=== PATIENT | female | born 1965 | race Caucasian/White ===

== ENCOUNTER 2023-09-13 11:33 | Emergency (ER) | payer OTHER, SELFPAY ==
[2023-09-13 11:34] VITALS: BP 120/76; PULSE 71; RESP 14; TEMP 36.8; O2SAT 95; BMI 35.5
--- NOTE | 2023-09-13 11:53 | RAD_ITS ---
EXAM: XR CHEST, 2 VIEWS CLINICAL INDICATION: chest pain TECHNIQUE: Frontal and lateral views of the chest. COMPARISON: No relevant prior studies available. FINDINGS: LUNGS AND PLEURAL SPACES: Normal. No consolidation or edema. No pneumothorax. No effusion. HEART: Normal heart size. MEDIASTINUM: No mediastinal or hilar mass. BONES/JOINTS: No acute abnormality. RAD/Chest PA and Lateral IMPRESSION: No acute cardiopulmonary disease. Electronically Signed: Arnulfo Allison MD at 13:24 EDT ,
--- NOTE | 2023-09-13 11:53 | EKG12_ITS ---
Test Reason : POST CP Blood Pressure : / mmHG Vent. Rate : 062 BPM Atrial Rate : 062 BPM P-R Int : 122 ms QRS Dur : 084 ms QT Int : 392 ms P-R-T Axes : 060 017 005 degrees QTc Int : 397 ms Normal sinus rhythm Normal ECG Confirmed by JEWELS RIVERA, ARSENIO ([id number]), digital editor MAREK SANDERS ([id number]) on 09/15/2023 10:48:21 AM Referred By: VILMA/JUNG Confirmed By:ARSENIO DONIS MD
--- NOTE | 2023-09-13 11:57 | EDS_ITS ---
HPI <CHARITY Purcell - Last Filed: 09/13/23 14:03> History of Present Illness Chief Complaint: Chest Pain Narrative Narrative: 58-year-old female presents with chest pain. Around 7:30 AM she was sitting in her car and developed chest tightness that is over the sternal area and under both breasts. It lasted 30 minutes and resolved on its own. She had no associated shortness of breath, nausea or vomiting, or diaphoresis. She has been getting similar episodes of chest pain since October 2022 but they have been increasing in frequency and intensity. They now occur 2-3 times a day. She states when it first started she was seen in another hospital and was diagnosed with COVID. Since then she has gone to urgent care multiple times for it. She does not have a primary care doctor. She does not take any medications. She smokes 2 packs/day x 30 years. She denies history of DVT/PE, leg pain or swelling, recent surgery or travel, cough or hemoptysis, or hormone use. PFSH <CHARITY Purcell - Last Filed: 09/13/23 14:03> PFSH Medical History Chest pain Chronic pain Kidney stones Migraines Smoker Allergy/AdvReac Type Severity Reaction Status Date / Time No Known Allergies Allergy Verified 09/13/23 11:34 Surgical History (Updated 09/13/23 @ 12:18 by Bessy Dominguez) History of laminectomy Social History Smoking Status: Current every day smoker tobacco type: cigarettes ROS <CHARITY Purcell - Last Filed: 09/13/23 14:03> ROS ED ROS Narrative Constitutional: Negative for fever, chills, malaise. CVS: Positive for chest pain. Negative for palpitations, syncope. Respiratory: Negative for shortness of breath, cough, orthopnea. GI: Negative for abdominal pain, nausea, vomiting. EXAM <CHARITY Purcell Last Filed: 09/13/23 14:03> Physical Exam Narrative Exam Narrative: CONST: Patient sitting in no acute distress. EYES: Normal inspection. NECK: Normal inspection. RESP: No respiratory distress, CTAB. CVS: Regular rate and rhythm, no murmur, no gallop. ABD: Soft and nontender, no guarding or rebound, nondistended, no hepatosplenomegaly. SKIN: Color normal, no rash, warm, dry, intact. EXTREMITIES: Normal appearance, no pedal edema. NEURO: Oriented x4. PSYCH: Normal affect. Const Vital Signs: 09/13/23 11:34 09/13/23 11:53 09/13/23 12:13 Temperature 98.3 F Temperature Source Temporal Pulse Rate 71 Respiratory Rate 14 Respiratory Effort Normal Non-Labored Blood Pressure 120/76 Blood Pressure Mean 90 Pulse Ox 95 Oxygen Delivery Method Room Air Room Air 09/13/23 13:33 09/13/23 14:13 Temperature 98 F Temperature Source Pulse Rate 55 L 59 L Respiratory Rate 18 16 Respiratory Effort Blood Pressure 105/65 116/74 Blood Pressure Mean 78 88 Pulse Ox 96 98 Oxygen Delivery Method Room Air <Dr. Pankaj Rahman DO - Last Filed: 09/13/23 15:10> Physical Exam Const Vital Signs: 09/13/23 11:34 09/13/23 11:53 09/13/23 12:13 Temperature 98.3 F Temperature Source Temporal Pulse Rate 71 Respiratory Rate 14 Respiratory Effort Normal Non-Labored Blood Pressure 120/76 Blood Pressure Mean 90 Pulse Ox 95 Oxygen Delivery Method Room Air Room Air 09/13/23 13:33 09/13/23 14:13 Temperature 98 F Temperature Source Pulse Rate 55 L 59 L Respiratory Rate 18 16 Respiratory Effort Blood Pressure 105/65 116/74 Blood Pressure Mean 78 88 Pulse Ox 96 98 Oxygen Delivery Method Room Air MDM <CHARITY Purcell - Last Filed: 09/13/23 14:03> [facility] Narrative Medical decision making narrative: History gathered from: Patient, daughter Differential: ACS, PE, GERD Patient has had episodes of chest pain going on for 6+ months. Had an episode this morning at rest. Symptoms have now resolved. She appears well and nontoxic and is afebrile with normal vital signs. Exam is unremarkable. EKG is sinus rhythm with no ischemic changes and troponin x 2 negative. D-dimer negative. CXR shows no acute process. I provided a primary care referral she needs to follow-up for these chronic ongoing symptoms. She was discharged in stable condition. I have personally performed a face to face assessment of the patient and have reviewed the SAVITA Note. I performed a substantive portion of the visit including all aspects of the following. My rodriguez findings include: History is [patient presents with complaint of chest pain that started this morning around 8 or 8:30 AM. Patient had been up already when she walked to her car and noticed it after being at the laundromat. Describes somewhat of a sharp pain at times at times to pressure in the center of her chest. This morning she noticed some discomfort into the right side of her neck and right shoulder but she just thought she slept wrong. She has had similar pain for quite a long time and it can happen at rest or with activity. She tells me she has no medical history. She smokes 2 packs of cigarettes per day. She thinks her dad had heart trouble but he was not in her life so she is not sure what kind of heart trouble. She denies recent illness. Not having much chest discomfort at this time.] Exam is [HEENT-PERRLA, EOMI. Cranial nerves II through XII grossly intact. TMs clear. Mucous membranes moist. No adenopathy. Cardiovascular-regular rate and rhythm without murmur or ectopy Lungs-clear to auscultation, chest wall stable without crepitus or subcu emphysema Abdomen-normoactive bowel sounds, soft, nontender, no rebound or rigidity, no peritoneal signs. Extremities-intact ?4, normal range of motion, normal pulses, atraumatic] Medical Decison Making [patient presents with intermittent chest pain that she has had for months not necessarily exertional but can happen at rest 2. Had an episode this morning lasting less than a half an hour. EKG obtained on arrival showed a sinus rhythm with rate of 62 bpm with no acute ST segment changes. Patient placed on a clinical research monitor. CBC with differential obtained was unremarkable. Chemistries unremarkable. Initial troponin was normal at 5. D- dimer was normal at 0.37. Delta troponin also normal. This time she is pain- free. Etiology of her chest pain unclear. Will refer to primary care physician for follow-up. Patient advised return if worsening pain, increasing shortness of breath, exertional dyspnea or symptoms or if condition should worsen anyway.] Other additions or changes: [None] Lab Data Attestation: I reviewed the patient's lab results. Labs: Laboratory Results - last 24 hr 09/13/23 09/13/23 12:06 13:25 WBC 8.2 RBC 4.86 Hgb 14.0 Hct 44.7 MCV 92.0 MCH 28.8 MCHC 31.3 L RDW Std Deviation 49.3 H RDW Coeff of Airam 14.7 H Plt Count 322 MPV 9.8 Immature Gran % (Auto) 0.200 Neut % (Auto) 57.9 Lymph % (Auto) 28.7 Saline % (Auto) 9.0 Eos % (Auto) 3.5 Baso % (Auto) 0.7 Absolute Neuts (auto) 4.7 Absolute Lymphs (auto) 2.35 Nucleated RBC % 0 D-Dimer Quant (PE/DVT) 0.37 Sodium 143 Potassium 4.1 Chloride 111 H Carbon Dioxide 27.0 Anion Gap 5 BUN 19 H Creatinine 0.90 Estim Creat Clear Calc 66.45 Est GFR (MDRD) Af Amer 83 Est GFR (MDRD) Non-Af 69 BUN/Creatinine Ratio 21.1 H Glucose 93 Calcium 9.2 Troponin I High Sens 5 5 Radiography Diagnostic Testing: Clinical Impression(s) from Imaging Studies Chest X-Ray 09/13/23 11:53 IMPRESSION: No acute cardiopulmonary disease. Electronically Signed: Arnulfo Allison MD at 13:24 EDT , ED attending interpretation of 2-view chest x-ray shows normal heart size, no acute infiltrate, edema, or effusion. EKG Initial EKG: Attestation: I personally reviewed and interpreted this EKG as follows: Interpretation: Sinus Rhythm and No Acute Injury Pattern Comments: Normal sinus rhythm at 62 bpm Normal intervals, no acute ischemic changes <Dr. Pankaj Rahman, DO - Last Filed: 09/13/23 15:10> [facility] Narrative Medical decision making narrative: I have personally performed a face to face assessment of the patient and have reviewed the SAVITA Note. I performed a substantive portion of the visit including all aspects of the following. My rodriguez findings include: History is [patient presents with complaint of chest pain that started this morning around 8 or 8:30 AM. Patient had been up already when she walked to her car and noticed it after being at the laundromat. Describes somewhat of a sharp pain at times at times to pressure in the center of her chest. This morning she noticed some discomfort into the right side of her neck and right shoulder but she just thought she slept wrong. She has had similar pain for quite a long time and it can happen at rest or with activity. She tells me she has no medical history. She smokes 2 packs of cigarettes per day. She thinks her dad had heart trouble but he was not in her life so she is not sure what kind of heart trouble. She denies recent illness. Not having much chest discomfort at this time.] Exam is [HEENT-PERRLA, EOMI. Cranial nerves II through XII grossly intact. TMs clear. Mucous membranes moist. No adenopathy. Cardiovascular-regular rate and rhythm without murmur or ectopy Lungs-clear to auscultation, chest wall stable without crepitus or subcu emphysema Abdomen-normoactive bowel sounds, soft, nontender, no rebound or rigidity, no peritoneal signs. Extremities-intact ?4, normal range of motion, normal pulses, atraumatic] Medical Decison Making [patient presents with intermittent chest pain that she has had for months not necessarily exertional but can happen at rest 2. Had an episode this morning lasting less than a half an hour. EKG obtained on arrival showed a sinus rhythm with rate of 62 bpm with no acute ST segment changes. Patient placed on a clinical research monitor. CBC with differential obtained was unremarkable. Chemistries unremarkable. Initial troponin was normal at 5. D- dimer was normal at 0.37. Delta troponin also normal. This time she is pain- free. Etiology of her chest pain unclear. Will refer to primary care physician for follow-up. Patient advised return if worsening pain, increasing shortness of breath, exertional dyspnea or symptoms or if condition should worsen anyway.] Other additions or changes: [None] Lab Data Labs: Laboratory Results - last 24 hr 09/13/23 09/13/23 12:06 13:25 WBC 8.2 RBC 4.86 Hgb 14.0 Hct 44.7 MCV 92.0 MCH 28.8 MCHC 31.3 L RDW Std Deviation 49.3 H RDW Coeff of Airam 14.7 H Plt Count 322 MPV 9.8 Immature Gran % (Auto) 0.200 Neut % (Auto) 57.9 Lymph % (Auto) 28.7 Saline % (Auto) 9.0 Eos % (Auto) 3.5 Baso % (Auto) 0.7 Absolute Neuts (auto) 4.7 Absolute Lymphs (auto) 2.35 Nucleated RBC % 0 D-Dimer Quant (PE/DVT) 0.37 Sodium 143 Potassium 4.1 Chloride 111 H Carbon Dioxide 27.0 Anion Gap 5 BUN 19 H Creatinine 0.90 Estim Creat Clear Calc 66.45 Est GFR (MDRD) Af Amer 83 Est GFR (MDRD) Non-Af 69 BUN/Creatinine Ratio 21.1 H Glucose 93 Calcium 9.2 Troponin I High Sens 5 5 Radiography Diagnostic Testing: Clinical Impression(s) from Imaging Studies Chest X-Ray 09/13/23 11:53 IMPRESSION: No acute cardiopulmonary disease. Electronically Signed: Arnulfo Allison MD at 13:24 EDT , Discharge Plan Triage Chief Complaint: Chest Pain ED Midlevel Provider: Zahra Rodriges ED Provider: Pankaj Rahman Dx/Rx/DC Orders Clinical Impression: Chest pain of unknown etiology Instructions: ED Chest Pain, Uncertain Cause Primary Care Provider: Care Physician,No Primary Referrals: Susana Henning MD [Med Staff - Senior [employer] Gifts Officer] - Care Physician,No Primary [Primary Care Provider] - Activity Restrictions/Additional Instructions: Your screening test today look normal. It is important you follow-up with a primary care doctor. Disposition Disposition: Home, Self Care Discharge Date/Time: 09/13/23 14:14
[2023-09-13 12:26] LABS: Absolute Lymphocyte Count 2.35 X10^3/uL (0.83-4.51); Absolute Neutrophil Count 4.7 X10^3/uL (2.0-7.7); Basophil# 0.06 X10^3/uL; Basophil% 0.7 % (0-1); Eosinophil# 0.29 X10^3/uL; Eosinophils% 3.5 % (0-5); Hematocrit 44.7 % (37-47); Lymphocyte # 2.35 X10^3/ul (0.83-4.51); Lymphocyte % 28.7 % (19-41); Mean Corp Hgb Conc 31.3 g/dL (32-36); Mean Corpuscular Hgb 28.8 pg (27.0-32.0); Mean Platelet Vol. 9.8 fl (6.2-12.0); Monocyte# 0.74 X10^3/uL; NRBC Flagged by Analyzer 0 % (0-5); Neutrophil # 4.74 X10^3/uL (2.7-7.7); Neutrophil % 57.9 % (47-70); Platelet Count 322 K/mm3 (150-450); RBC Distribution Width CV 14.7 % (11.6-14.6); RBC Distribution Width SD 49.3 fl (35.1-43.9); Red Blood Count 4.86 M/mm3 (4.2-5.4); White Blood Count 8.2 K/mm3 (4.4-11.0)
[2023-09-13 12:43] LABS: Anion Gap 5 (5-15); BUN 19 mg/dL (7-18); BUN/Creat Ratio 21.1 RATIO (10-20); Calcium,Total 9.2 mg/dL (8.5-10.1); Chloride 111 mmol/L (98-107); EST Glomerular Filtration Rate 69 mL/min (>60); Est Glom Filt Rate - Afr Amer 83 mL/min (>60); Estimated Creatinine Clearance 66.45 ml/min; Glucose 93 mg/dL (74-106); Potassium 4.1 mmol/L (3.5-5.1); Sodium Level 143 mmol/L (136-145); Troponin-I HS (w/2H Reflex) 5 pg/mL (3.0-54.0)
--- OUTSIDE RECORDS SUMMARY | 2023-09-13 13:13 | XMS RPT_ITS | CCD ---
Author Name Unknown Address [address] [place] [address] Organization [facility] Care Team Providers Care Fiber Worker Name Role Phone Unavailable Primary Care Provider REJI [employer] Unavailable Allergies Allergy Classification Reported Allergen(s) Allergy Type Date of Onset Reaction(s) Facility (1 source) Codeine Drug Allergy 10-04-2022 Intolerance [facility] Medications Current Medications Medication Drug Class(es) Dates Sig (Normalized) Sig (Original) predniSONE 20 mg oral tablet (1 source) Start: 10-04-2022 End: 10-09-2022 take 1 tablet by mouth twice daily predniSONE (DELTASONE) 20 mg tablet Indications: URI, acute Take 1 tablet by mouth twice daily for 5 days. 10 tablet 0 10/04/2022 10/09/2022 Active Completed/Discontinued Medications Medication Drug Class(es) Dates Sig (Normalized) Sig (Original) azithromycin 250 mg oral tablet (1 source) Macrolide Antimicrobial Start: 10-04-2022 azithromycin (ZITHROMAX Z-MILAGROS) 250 mg tablet Indications: URI, acute , Acute pharyngitis, unspecified etiology 2 tablets by mouth first day then 1 tablet the next 4 days 6 tablet 0 10/04/2022 Active Problems Active Problems Problem Classification Problem Date Documented Da te Episodic/Chronic Other upper respiratory infections (3 sources) Sore throat symptom; Translations: [Acute pharyngitis, unspecified] Episodic Past or Other Problems Problem Classification Problem Date Documented Da te Episodic/Chronic Unclassified (1 source) COUGH CHEST AND BACK PAIN Onset: 10-02-2022 Results Test Name Value Interpretation Reference Range Facil ity Vital Signs Date Time Vital Sign Value Performing Clinician Faci lity 10-04-2022 10:50-0400 Body temperature 98.01 [degF] Vanesa Morris Oles RECREATION CLERK.ROLLING CHAIR PUSHER Work Phone: [facility] 10-04-2022 10:50-0400 Body weight 92.08 kg Vanesa Fournier RECREATION CLERK.ROLLING CHAIR PUSHER Work Phone: [facility] 10-04-2022 10:50-0400 Diastolic blood pressure 74 mm[Hg] Vanesa Fournier RECREATION CLERK.ROLLING CHAIR PUSHER Work Phone: [facility] 10-04-2022 10:50-0400 Heart rate 68 /min Vanesa Fournier RECREATION CLERK.ROLLING CHAIR PUSHER Work Phone: [facility] 10-04-2022 10:50-0400 Respiratory rate 16 /min Vanesa Fournier RECREATION CLERK.ROLLING CHAIR PUSHER Work Phone: [facility] 10-04-2022 10:50-0400 SaO2% (BldA) [Mass fraction] 98 % Vanesa Fournier RECREATION CLERK.ROLLING CHAIR PUSHER Work Phone: [facility] 10-04-2022 10:50-0400 Systolic blood pressure 114 mm[Hg] Vanesa Fournier RECREATION CLERK.ROLLING CHAIR PUSHER Work Phone: [facility] Encounters Encounter Date Encounter Type Care Provider Facility Start: 10-04-2022 End: 10-04-2022 ambulatory Facility:[facility] Start: 10-04-2022 End: 10-04-2022 Patient encounter procedure Vanesa Fournier RECREATION CLERK.ROLLING CHAIR PUSHER Work Phone: [facility] Procedures Date Procedure Procedure Detail Performing Clinician Start: 10-04-2022 RAPID STREP TEST B/O Bhumi Fournier RECREATION CLERK.ROLLING CHAIR PUSHER Work Phone: Start: 10-02-2022 HIGH SENSITIVITY TRO PONIN T Kavin Bradford Current Work Phone: Start: 10-02-2022 BASIC METABOLIC PNL Sherman Bradford Current Work Phone: Start: 10-02-2022 CBC + DIFF Kavin juares Current Work Phone: Start: 10-02-2022 HEPATIC FUNCTION PNL Imelda naz Bradford Current Work Phone: Start: 10-02-2022 HIGH SENSITIVITY TRO PONIN T Kavin Hearthen Current Work Phone: Start: 10-02-2022 NT PRO BNP Kavin juares Current Work Phone: Start: 10-02-2022 Radiologic exam ches t single view Kavin Hearthen Current Work Phone: Plan of Treatment Date Care Activity Detail Author Start: 10-02-2025 DIABETES SCREEN DIABETES SCREEN [facility] Start: 02-27-2023 Influenza vaccination INFLUENZA (Sea son Ended) [facility] Start: 06-29-2022 DEPRESSION ASSESSMENT DEPRESSION ASS ESSMENT [facility] Start: 2017 SHINGRIX VACCINE (1 of 2) SHINGRIX V ACCINE (1 of 2) [facility] Start: 2012 COLOGUARD (FIT-DNA) COLOGUARD (FIT-D NA) [facility] Start: 2012 Colonoscopy COLONOSCOPY [facility] Start: 2012 COLORECTAL CANCER SCREENING COLORECTAL CANCER SCREENING [facility] Start: [address] COLONOGRAPHY [facility] Start: 2012 FECAL OCCULT BLOOD FECAL OCCULT BLOO D [facility] Start: 2012 LIPID SCREEN LIPID SCREEN [facility] Start: 2012 SIGMOIDOSCOPY SIGMOIDOSCOPY [facility] Start: 2007 Mammography MAMMOGRAM [facility] Start: 1997 HPV TESTING HPV TESTING [facility] Start: 1988 PAP TESTING PAP TESTING [facility] Start: 1986 Urine microalbumin profile DTAP,TDAP ,TD (1 - Tdap) [facility] Start: 1985 HEPATITIS C SCREENING HEPATITIS C SC REENING [facility] Start: 1985 HIV SCREENING HIV SCREENING [facility] Start: 1973 PNEUMOCOCCAL (1 - PCV) PNEUMOCOCCAL (1 - PCV) [facility] Start: 1967 COVID-19 VACCINE (#1) COVID-19 VACCI NE (#1) [facility] Start: 1967 HEPATITIS B (1 of 3 - 3-dose series) HEPATITIS B (1 of 3 - 3-dose series) [facility] Payers Date Payer Category Payer Policy ID Self-pay Unknown [id number] Social History Date Type Detail Facility Tobacco smoking stat [facility] Tobacco smoking consumption unknown [facility] Start: 1965 Sex Assigned At Not on file C [facility] Start: 10-04-2022 Tobacco smoking stat [facility] Smokes tobacco daily [facility] History of tobacco use Cigarette Smoker [facility] Start: 10-04-2022 Tobacco use and exposure Smokeless t obacco non-user [facility] Progress note 10-04-2022 Note Date & Type Note Facility 10-04-2022 Note HNO ID: [id number] Author: Vanesa Fournier APRN.ROLLING CHAIR PUSHER Service: ? Author Type: Nurse Practitioner Type: Progress Notes Filed: 10/04/2022 11:36 AM Note Text: October 04, 2022 Subjective Chief Complaint: Upper Respiratory Infection (Patient stated that she started with symptoms x 6 days. ), Cough (Some what productive cough x 4 days. ), and Sore Throat (X 3 days. OTC: Mucinex ) HPI: Anthony Gomes is a 57 year old female who presents today for complaints of cough, sore throat and congestion for 6 days. Pt states she has taken Mucinex for her symptoms with minimal relief. Pt reports she has felt fatigued, co-workers sick around her also. Pt denies concern for covid. 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 History reviewed. No pertinent past medical history. PAST SURGICAL HISTORY Procedure Laterality Date BACK SURGERY HX History reviewed. No pertinent family history. Social History Tobacco Use Smoking status: Every Day Types: Cigarettes Smokeless tobacco: Never Vaping Use Vaping Use: Never used ALLERGIES Allergen Reactions Codeine Intolerance There is no immunization history on file for this patient. Current Medications: No prescriptions on file. Review of Systems Constitutional: Positive for chills and malaise/fatigue. Negative for fever. HENT: Positive for congestion, ear pain and sore throat. Respiratory: Positive for cough. Negative for shortness of breath and wheezing. Gastrointestinal: Positive for nausea. Negative for abdominal pain, diarrhea and vomiting. Musculoskeletal: Negative for myalgias and neck pain. Skin: Negative for rash. Neurological: Positive for headaches. Negative for dizziness. Objective BP 114/74 Pulse 68 Temp 98 Resp 16 Wt 203 lb (92.1kg) SpO2 98% Physical Exam Vitals and nursing note reviewed. Constitutional: General: She is not in acute distress. Appearance: Normal appearance. She is not ill-appearing, toxic-appearing or diaphoretic. HENT: Head: Normocephalic and atraumatic. Ears: Comments: Tms pink Nose: Congestion (nasal mucoa red) present. Mouth/Throat: Mouth: Mucous membranes are moist. Pharynx: Oropharynx is clear. Posterior oropharyngeal erythema present. No oropharyngeal exudate. Cardiovascular: Rate and Rhythm: Normal rate and regular rhythm. Heart sounds: Normal heart sounds. Pulmonary: Effort: Pulmonary effort is normal. No respiratory distress. Breath sounds: Normal breath sounds. No wheezing, rhonchi or rales. Comments: Harsh cough, voice is raspy Musculoskeletal: Cervical back: Normal range of motion and neck supple. No tenderness. Lymphadenopathy: Cervical: No cervical adenopathy. Skin: General: Skin is warm and dry. Coloration: Skin is not pale. Findings: No erythema or rash. Neurological: General: No focal deficit present. Mental Status: She is alert and oriented to person, place, and time. Psychiatric: Mood and Affect: Mood normal. Behavior: Behavior normal. Thought Content: Thought content normal. ASSESSMENT/PLAN: 1. Sore throat - ICD9: 462, ICD10: J02.9 (primary diagnosis) - RAPID STREP TEST B/O 2. URI, acute - ICD9: 465.9, ICD10: J06.9 - Discussed viral etiology and rationale for treatment. - Symptomatic treatment with prn analgesia - Supportive care with fluids and rest - PREDNISONE 20 MG TABLET - AZITHROMYCIN 250 MG TABLET 3. Acute pharyngitis, unspecified etiology - ICD9: 462, ICD10: J02.9 - Rapid Strep negative in the office today - Discussed supportive care treatment with fluids, rest and analgesia. - AZITHROMYCIN 250 MG TABLET Your rapid strep was negative. I recommend warm salt water gargles, Tylenol or Ibuprofen for sore throat if needed and Mucinex for cough and congestion as before. Increase fluids and monitor symptoms including temperature if you are feeling fevered or chilled. You are being treated for an upper respiratory infection, take medication as prescribed with food and take zpak and prednisone a few hours apart. Follow-up for recheck if your symptoms worsen or do not improve in 5-7 days, sooner if needed. If you are having any trouble swallowing or breathing, seek immediate care in the ER for further evaluation. Yumiko Fournier APRN.CNP [facility] Instructions 10-04-2022 Patient Instructions Note Date & Type Note Facility 10-04-2022 Instructions Vanesa Fournier APRN.CNP - 10/04/2022 11:23 AM EDT Your rapid strep was negative. I recommend warm salt water gargles, Tylenol or Ibuprofen for sore throat if needed and Mucinex for cough and congestion as before. Increase fluids and monitor symptoms including temperature if you are feeling fevered or chilled. You are being treated for an upper respiratory infection, take medication as prescribed with food and take zpak and prednisone a few hours apart. Follow-up for recheck if your symptoms worsen or do not improve in 5-7 days, sooner if needed. If you are having any trouble swallowing or breathing, seek immediate care in the ER for further evaluation. documented in this encounter [facility] History of Present illness Narrative 10-04-2022 Vanesa Fournier APRN.CNP - 10/04/2022 11:05 AM EDT Note Date & Type Note Facility 10-04-2022 History of Presen t illness Narrative October 04, 2022 Subjective Chief Complaint: Upper Respiratory Infection (Patient stated that she started with symptoms x 6 days. ), Cough (Some what productive cough x 4 days. ), and Sore Throat (X 3 days. OTC: Mucinex ) HPI: Anthony Gomes is a 57 year old female who presents today for complaints of cough, sore throat and congestion for 6 days. Pt states she has taken Mucinex for her symptoms with minimal relief. Pt reports she has felt fatigued, co-workers sick around her also. Pt denies concern for covid. 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 History reviewed. No pertinent past medical history. PAST SURGICAL HISTORY Procedure Laterality Date BACK SURGERY HX History reviewed. No pertinent family history. Social History Tobacco Use Smoking status: Every Day Types: Cigarettes Smokeless tobacco: Never Vaping Use Vaping Use: Never used ALLERGIES Allergen Reactions Codeine Intolerance There is no immunization history on file for this patient. Current Medications: No prescriptions on file. Review of Systems Constitutional: Positive for chills and malaise/fatigue. Negative for fever. HENT: Positive for congestion, ear pain and sore throat. Respiratory: Positive for cough. Negative for shortness of breath and wheezing. Gastrointestinal: Positive for nausea. Negative for abdominal pain, diarrhea and vomiting. Musculoskeletal: Negative for myalgias and neck pain. Skin: Negative for rash. Neurological: Positive for headaches. Negative for dizziness. Objective BP 114/74 Pulse 68 Temp 98 Resp 16 Wt 203 lb (92.1kg) SpO2 98% Physical Exam Vitals and nursing note reviewed. Constitutional: General: She is not in acute distress. Appearance: Normal appearance. She is not ill-appearing, toxic-appearing or diaphoretic. HENT: Head: Normocephalic and atraumatic. Ears: Comments: Tms pink Nose: Congestion (nasal mucoa red) present. Mouth/Throat: Mouth: Mucous membranes are moist. Pharynx: Oropharynx is clear. Posterior oropharyngeal erythema present. No oropharyngeal exudate. Cardiovascular: Rate and Rhythm: Normal rate and regular rhythm. Heart sounds: Normal heart sounds. Pulmonary: Effort: Pulmonary effort is normal. No respiratory distress. Breath sounds: Normal breath sounds. No wheezing, rhonchi or rales. Comments: Harsh cough, voice is raspy Musculoskeletal: Cervical back: Normal range of motion and neck supple. No tenderness. Lymphadenopathy: Cervical: No cervical adenopathy. Skin: General: Skin is warm and dry. Coloration: Skin is not pale. Findings: No erythema or rash. Neurological: General: No focal deficit present. Mental Status: She is alert and oriented to person, place, and time. Psychiatric: Mood and Affect: Mood normal. Behavior: Behavior normal. Thought Content: Thought content normal. ASSESSMENT/PLAN: 1. Sore throat - ICD9: 462, ICD10: J02.9 (primary diagnosis) - RAPID STREP TEST B/O 2. URI, acute - ICD9: 465.9, ICD10: J06.9 - Discussed viral etiology and rationale for treatment. - Symptomatic treatment with prn analgesia - Supportive care with fluids and rest - PREDNISONE 20 MG TABLET - AZITHROMYCIN 250 MG TABLET 3. Acute pharyngitis, unspecified etiology - ICD9: 462, ICD10: J02.9 - Rapid Strep negative in the office today - Discussed supportive care treatment with fluids, rest and analgesia. - AZITHROMYCIN 250 MG TABLET Your rapid strep was negative. I recommend warm salt water gargles, Tylenol or Ibuprofen for sore throat if needed and Mucinex for cough and congestion as before. Increase fluids and monitor symptoms including temperature if you are feeling fevered or chilled. You are being treated for an upper respiratory infection, take medication as prescribed with food and take zpak and prednisone a few hours apart. Follow-up for recheck if your symptoms worsen or do not improve in 5-7 days, sooner if needed. If you are having any trouble swallowing or breathing, seek immediate care in the ER for further evaluation. Yumiko Fournier APRN.ROLLING CHAIR PUSHER documented in this encounter [facility] History of Present illness Narrative 01-02-2021 Nam Herron APRN.SURY - 01/02/2021 1:03 PM EDT Note Date & Type Note Facility 01-02-2021 History of Present illness Narrative DATE OF SERVICE: 01/02/2021 HISTORY OF PRESENT ILLNESS: Patient is a 55-year-old [facility] issues. Symptoms started about one month ago. Reports urinary frequency, incontinence, and she feels like she has a constant yeast infection. Originally, this started about 2-1/2 years ago, but much worse over the past several weeks. Has not seen a doctor for this. Does not have an SOLAR FIELD SERVICE TECHNICIAN. She does have concern for STDs due to unprotected sex with a previous partner. No fever, sweats, or chills. No nausea or vomiting. PAST MEDICAL HISTORY: Unremarkable. ALLERGIES: Environmental. MEDICATIONS: 1. Multivitamin. 2. Vitamin C. PHYSICAL EXAMINATION: Vital signs reviewed and stable. General: Well appearing, nontoxic, no apparent distress. Cardiovascular: Regular rate and rhythm. No murmurs. Respiratory: Lung sounds clear to auscultation bilaterally. No respiratory distress. Gastrointestinal: Normal bowel sounds. No abdominal tenderness, flank tenderness, or CVA tenderness. STATCARE COURSE: Vaginal examination with an LP in room during the examination. No erythema or swelling to the labia majora or minora. On speculum examination, patient does have some yellowish-white discharge noted to the cervical os with some little bit of surrounding erythema. No cervical . STUDIES: Urinalysis was obtained. It showed 25 blood, negative nitrites, 70 leukocyte esterase. This will be sent out for culture. CLINICAL IMPRESSION: 1. Urinary tract infection. 2. Sexually transmitted disease check. PLAN: Prescription for Macrobid sent to pharmacy. Discussed Tylenol and ibuprofen, increase oral hydration, finishing antibiotic as prescribed. Given IM Rocephin and 1 g of azithromycin while in [facility]. Agreeable with plan. No other questions or concerns. Nam Herron CNP /[id number] [facility] File#: [id number] END OF DOCUMENT / CHANGE LOG FOLLOWS Last Edited By [employer]. Signed By Nam Herron CNP #MOYCO Nam Herron CNP #MOYCO on 01/06/2021 09:10 ET on 01/06/2021 09:10 ET Revision Number - 2 ^^^ Verified/Reviewed by [id number]/[id number] [facility] PATIENT NAME: ANTHONY GOMES [facility] MEDICAL REC #: [id number] [place] [address] [facility] REPORT STATCARE PHYSICIAN documented in this encounter [facility] Evaluation note Note Date & Type Note Facility documented in this encounter [facility] Summary Purpose Family History No Family History Records FoundNo Family History Records FoundNo Family History Records Found Advance Directives No Advanced Directives Records FoundNo Advanced Directives Records FoundNo Advanced Directives Records Found Additional Source Comments INFORMATION SOURCE (unrecogn ized section and content) DATE CREATED AUTHOR AUTHOR'S ORGANIZ ATION 10/09/2022 [facility] DATE CREATED AUTHOR AUTHOR'S ORGANIZ ATION 03/06/2023 [facility] Source Comments (unrecognize d section and content) In the event this informatio n is protected by the Federal Confidentiality of Alcohol and Drug Abuse Patient Records regulations: The Federal rules restrict any use of the information to criminally investigate or prosecute any alcohol or drug abuse patient.[facility] the event this information is protected by the Federal Confidentiality of Alcohol and Drug Abuse Patient Records regulations: The Federal rules restrict any use of the information to criminally investigate or prosecute any alcohol or drug abuse patient.[facility] the event this information is protected by the Federal Confidentiality of Alcohol and Drug Abuse Patient Records regulations: The Federal rules restrict any use of the information to criminally investigate or prosecute any alcohol or drug abuse patient.[facility] Reason for Visit (unrecogniz ed section and content) FOR RECORDS PERTAINING TO PATIENTS WHO ARE OR HAVE BEEN ENROLLED IN A CHEMICAL DEPENDENCY/SUBSTANCEABUSE PROGRAM, SOME INFORMATION MAY BE OMITTED. This clinical summary was aggregated from multiple sources. Caution should be exercised in using it in the provision of clinical care. This summary normalizes information from multiple sources, and as a consequence, information in this document may materially change the coding, format and clinical context of patient data. In addition, data may be omitted in some cases. CLINICAL DECISIONS SHOULD BE BASED ON THE PRIMARY CLINICAL RECORDS. [facility]. provides no warranty or guarantee of the accuracy or completeness of information in this document.
--- NOTE | 2023-09-13 13:20 | ED.RN ---
D-DIMER 2.31. DR JUAREZ
[2023-09-13 13:33] VITALS: BP 105/65; PULSE 55; RESP 18; O2SAT 96
[2023-09-13 13:37] LABS: D-Dimer Quantitative (DVT/PE) 0.37 FEU/ug/m (0.27-0.49)
[2023-09-13 13:50] LABS: Troponin-I HS 5 pg/mL (3.0-54.0)
[2023-09-13 14:13] VITALS: BP 116/74; PULSE 59; RESP 16; TEMP 36.6; O2SAT 98
[2023-09-13 14:22] LABS: Reflex Troponin-HS? (from REC) Y
== END 2023-09-13 14:14 | disposition home or self-care (01) ==
PROVIDERS: Physician Assistant; Emergency Provider Emergency Medicine; Visit Provider Emergency Medicine
DX: R07.9 Chest pain, unspecified (principal); F17.210 Nicotine dependence, cigarettes, uncomplicated; Z86.16 Personal history of COVID-19
CPT/HCPCS: 71046; 80048; 84484; 85025; 85379; 93005; 99284; A4216